=== PATIENT | female | born 1970 | race Caucasian/White ===

== ENCOUNTER → 2017-03-26 10:53 | Outpatient (CLI) | payer BC ==
[2013-05-20 17:02] VITALS: BMI 42.9
[~2017-03-26 10:53] MED LIST: ALEVE220 MG PO; COZAAR100 MG PO; OCELLA 3 MG-0.1 EACH PO; SYNTHROID175 MCG PO
== END | disposition home or self-care (01) ==
LOC: D.MRI 03-21 14:30
DX: E72.8 Other specified disorders of amino-acid metabolism (principal)

== ENCOUNTER 2017-05-15 13:29 | Emergency (ER) | payer BC ==
[2013-05-20 17:02] VITALS: BMI 42.9
[2017-05-15 14:26] LABS: BASOPHILS 0.1 % (0-2); EOSINOPHILS 2.1 % (0-7); HEMATOCRIT 40.7 % (36.0-48.0); HEMOGLOBIN 14.2 g/dL (12-16); IMMATURE GRANULOCYTES 0.2 % (0-5); LYMPHOCYTES 31.1 % (15-50); MCH 32.3 pg (26.0-34.0); MCHC 34.9 g/dL (31.0-37.0); MCV 92.7 fL (80.0-100.0); MEAN PLATELET VOLUME 10.8 fL (7.4-10.4); MONOCYTES 6.8 % (2-11); NEUTROPHILS 59.7 % (40-80); PLATELET COUNT 259 10x3/uL (130-400); RBC 4.39 10x6/uL (4.00-5.40); WBC 8.6 10x3/uL (4.8-10.8)
[2017-05-15 14:46] LABS: APPEARANCE HAZY (CLEAR); BACTERIA MODERATE /hpf (NONE SEEN); BILIRUBIN NEGATIVE (NEGATIVE); COLOR YELLOW (YELLOW); EPITHELIAL CELLS 0-5 /hpf (0-5); GLUCOSE 1000 mg/dL (NEGATIVE); KETONE NEGATIVE (NEGATIVE); MUCUS <1+ /lpf (NONE SEEN); NITRITE NEGATIVE (NEGATIVE); PROTEIN NEGATIVE (NEGATIVE); RED CELLS - URINE OCC /hpf (0-5); SPECIFIC GRAVITY 1.015 (1.005-1.020); UROBILINOGEN NORMAL (NORMAL); WHITE CELLS - URINE 0-5 /hpf (0-5); YEAST <1+ /hpf (NONE SEEN)
[2017-05-15 15:22] LABS: ALBUMIN 2.8 g/dL (3.4-5.0); ALKALINE PHOSPHATASE 75 U/L (46-116); ALT (SGPT) 29 U/L (10-68); BILIRUBIN - TOTAL 0.26 mg/dL (0.2-1.3); CALC OSMOLALITY 272 mosm/kg (275-300); CALCIUM 8.5 mg/dL (8.5-10.1); CARBON DIOXIDE 27.9 mmol/L (21.0-32.0); CHLORIDE - SERUM 105 mmol/L (98-107); CREATININE - SERUM 0.7 mg/dL (0.6-1.3); GLUCOSE 90 mg/dL (74-106); POTASSIUM - SERUM 3.3 mmol/L (3.5-5.1); PROTEIN - SERUM 6.5 g/dL (6.4-8.2); SODIUM 138 mmol/L (136-145); UREA NITROGEN 4 mg/dL (7-18); eGFR NON AFRICAN AMERICAN > 90 mL/min (90-120)
[2017-05-15 16:05] LABS: AMYLASE - SERUM 29 U/L (25-115); LIPASE 83 U/L (73-393)
[2017-05-15 16:17] LABS: KETONE - SERUM NEGATIVE (NEGATIVE)
[2017-05-15 16:35] LABS: MAGNESIUM - SERUM 1.8 mg/dL (1.8-2.4); THYROID STIMULATING HORMONE 0.01 uIU/mL (0.36-3.74)
== END 2017-05-15 17:35 | disposition home or self-care (01) ==
LOC: D.ER 13:29
PROVIDERS: Emergency Medicine; Nurse Practitioner Family
DX: R10.9 Unspecified abdominal pain (principal); R11.2 Nausea with vomiting, unspecified; E03.9 Hypothyroidism, unspecified

== ENCOUNTER 2018-04-08 18:29 | Inpatient (IN) | payer OTHER ==
[~2018-04-08] VITALS: Ht 157.5 cm; Wt 106.6 kg
--- NOTE | ~2018-04-08 | MORECARE ---
CASE MANAGEMENT DISCHARGE SUMMARY PATIENT: MAO HAMLIN UNIT: [id number] ADM DATE: 04/08/18 AGE: 48 : 72 SEX: F ROOM/BED: D.2203 AUTHOR: DELFINO GOODMAN PHYSICIAN: REFERRING PHYSICIAN: CADEN GIBSON MD DATE OF SERVICE: 04/09/18 Discharge Plan Patient Name: MAO HAMLIN [facility] [facility] 1970 Planned Disposition: Home Anticipated Discharge Date: Discharge Date: Expected LOS: Initial Reviewer: [email or web address] Initial Review Date: 04/09/2018 Generated: 04/09/18 2:39 pm DCPIA - Discharge Planning Initial Assessment Updated by [email or web address]: Ahslyn Singh on 04/09/18 1:37 pm * Is the patient Alert and Oriented? Yes * How many steps to enter\exit or inside your home? * PCP DEIRDRE ARMSTRONG * Pharmacy [facility] * Preadmission Environment Home with Family * ADLs Independent * Equipment None * List name and contact numbers for known caregivers / representatives who currently or will assist patient after discharge: OLGA LIDIA HAMLIN [phone] * Verbal permission to speak to the caregivers and representatives has been obtained from the patient. N/A * Community resources currently utilized None * Additional services required to return to the preadmission environment? No * Can the patient safely return to the preadmission environment? Yes * Has this patient been hospitalized within the prior 30 days at any hospital? Yes Patient Name: MAO HAMLIN Page [id number] at 1339 All edits/amendments must be made on the electronic document DICTATION DATE: 04/09/181337 PROGRAM OFFICER: KIERRA 04/09/181337 RPT#: [id number] DC DATE: STATUS: ADM IN [facility] [address] [place] [address] END OF REPORT
--- NOTE | ~2018-04-08 | MORECARE ---
CASE MANAGEMENT DISCHARGE SUMMARY PATIENT: MAO HAMLIN UNIT: [id number] ADM DATE: 04/08/18 AGE: 48 : 72 SEX: F ROOM/BED: D.2203 AUTHOR: MAXINE,DOC PHYSICIAN: REFERRING PHYSICIAN: CADEN GIBSON MD DATE OF SERVICE: 04/09/18 Discharge Plan Patient Name: MAO HAMLIN Facility: [facility]:[place] : 1970 Planned Disposition: Home Anticipated Discharge Date: Discharge Date: Expected LOS: Initial Reviewer: [email or web address] Initial Review Date: 04/09/2018 Generated: 04/09/18 2:47 pm Comments DCP- Discharge Planning Updated by [email or web address]: Ashlyn Singh on 04/09/18 12:[address] Patient Name: MAO HAMLIN Admission Status: ER Accout number: [id number] Admission Date: 04-08-2018 : 1970 Admission Diagnosis: Attending: CADEN GIBSON Current LOS: 1 Anticipated DC Date: Planned Disposition: Home Primary Insurance: UN[employer]URED [employer]COUNT PLAN Discharge Planning Comments: CM met with patient to assess discharge planning needs. Patient stated that she lives in [place] with her where she plans to return at discharge. She is independent with her care at home .She has recently had surgery at [facility] in [place] on 03/26. She is to see Dr Baron on May 02 for a surgery follow up. At this time she denies any needs and states her home is safe to return at discharge. CM will continue to follow and assist with DC planning Cigar Packer And Grader: Ashlyn Singh DCPIA - Discharge Planning Initial Assessment Updated by [email or web address]: Ashlyn Singh on 04/09/18 1:37 pm * Is the patient Alert and Oriented? Yes * How many steps to enter\exit or inside your home? * PCP DEIRDRE ARMSTRONG * Pharmacy [facility] * Preadmission Environment Home with Family * ADLs Independent * Equipment None * List name and contact numbers for known caregivers / representatives who currently or will assist patient after discharge: OLGA LIDIA HAMLIN [phone] * Verbal permission to speak to the caregivers and representatives has been obtained from the patient. N/A * Community resources currently utilized None * Additional services required to return to the preadmission environment? No * Can the patient safely return to the preadmission environment? Yes * Has this patient been hospitalized within the prior 30 days at any hospital? Yes Last DP export: 04/09/18 12:39 Patient Name: MAO HAMLIN Page 40004 at 1347 All edits/amendments must be made on the electronic document DICTATION DATE: 04/09/181346 INTEGRATED CIRCUIT IC LAYOUT DESIGNER: KIERRA 04/09/181346 RPT#: [id number] DC DATE: STATUS: ADM IN [facility] [address] [place] [address] END OF REPORT
--- NOTE | ~2018-04-08 | MORECARE ---
CASE MANAGEMENT DISCHARGE SUMMARY PATIENT: MAO HAMLIN UNIT: [id number] ADM DATE: 04/10/18 AGE: 48 : 72 SEX: F ROOM/BED: D.2203 AUTHOR: DELFINO GOODMAN PHYSICIAN: REFERRING PHYSICIAN: CADEN GIBSON MD DATE OF SERVICE: 04/14/18 Discharge Plan Patient Name: MAO HAMLIN Facility: [facility]:[place] : 1970 Planned Disposition: Home Anticipated Discharge Date: Discharge Date: 04/11/2018 Expected LOS: 0 Initial Reviewer: [email or web address] Initial Review Date: 04/09/2018 Generated: 04/14/18 11:14 am Comments DCP- Discharge Planning Updated by [email or web address]: Ashlyn Singh on 04/11/18 2:[address] Patient Name: MAO HAMLIN Encounter No: [id number] : 1970 Primary Insurance: [facility] Anticipated DC Date: Planned Disposition: Home External Planned Provider: : DCP follow-up note: Patient and family in agreement with discharge plan. No changes to plan. Case management will follow and assist as needed. Ashlyn Singh DCP- Discharge Planning Updated by [email or web address]: Ashlyn Singh on 04/09/18 12:[address] Patient Name: MAO HAMLIN Admission Status: ER Accout number: [id number] Admission Date: 04-08-2018 : 1970 Admission Diagnosis: Attending: CADEN GIBSON Current LOS: 1 Anticipated DC Date: Planned Disposition: Home Primary Insurance: UN[employer]URED [employer]COUNT PLAN Discharge Planning Comments: CM met with patient to assess discharge planning needs. Patient stated that she lives in [place] with her where she plans to return at discharge. She is independent with her care at home .She has recently had surgery at [facility] in [place] on 03/26. She is to see Dr Baron on May 02 for a surgery follow up. At this time she denies any needs and states her home is safe to return at discharge. CM will continue to follow and assist with DC planning Veterinary Technician Instructor: Ashlyn Singh DCPIA - Discharge Planning Initial Assessment Updated by [email or web address]: Ashlyn Singh on 04/09/18 1:37 pm * Is the patient Alert and Oriented? Yes * How many steps to enter\exit or inside your home? * PCP DEIRDRE ARMSTRONG * Pharmacy [facility] * Preadmission Environment Home with Family * ADLs Independent * Equipment None * List name and contact numbers for known caregivers / representatives who currently or will assist patient after discharge: OLGA LIDIA HAMLIN [phone] * Verbal permission to speak to the caregivers and representatives has been obtained from the patient. N/A * Community resources currently utilized None * Additional services required to return to the preadmission environment? No * Can the patient safely return to the preadmission environment? Yes * Has this patient been hospitalized within the prior 30 days at any hospital? Yes Last DP export: 04/11/18 2:23 Patient Name: MAO HAMLIN Page 30233 at 1014 All edits/amendments must be made on the electronic document DICTATION DATE: 04/14/18 1014 ROOFER GYPSUM: KIERRA 04/14/18 1014 RPT#: [id number] DC DATE:04/11/18 STATUS: DIS IN [facility] [address] [place] [address] END OF REPORT
--- NOTE | ~2018-04-08 | MORECARE ---
CASE MANAGEMENT DISCHARGE SUMMARY PATIENT: MAO HAMLIN UNIT: [id number] ADM DATE: 04/10/18 AGE: 48 : 72 SEX: F ROOM/BED: D.2203 AUTHOR: DELFINO GOODMAN PHYSICIAN: REFERRING PHYSICIAN: CADEN GIBSON MD DATE OF SERVICE: 04/11/18 Discharge Plan Patient Name: MAO HAMLIN Facility: [facility]:[place] : 1970 Planned Disposition: Home Anticipated Discharge Date: Discharge Date: Expected LOS: Initial Reviewer: [email or web address] Initial Review Date: 04/09/2018 Generated: 04/11/18 4:23 pm Comments DCP- Discharge Planning Updated by [email or web address]: Ashlyn Singh on 04/11/18 2:[address] Patient Name: MAO HAMLIN Encounter No: [id number] : 1970 Primary Insurance: [facility] Anticipated DC Date: Planned Disposition: Home External Planned Provider: : DCP follow-up note: Patient and family in agreement with discharge plan. No changes to plan. Case management will follow and assist as needed. Ashlyn Singh DCP- Discharge Planning Updated by [email or web address]: Ashlyn Singh on 04/09/18 12:[address] Patient Name: MAO HAMLIN Admission Status: ER Accout number: [id number] Admission Date: 04-08-2018 : 1970 Admission Diagnosis: Attending: CADEN GIBSON Current LOS: 1 Anticipated DC Date: Planned Disposition: Home Primary Insurance: UN[employer]URED [employer]COUNT PLAN Discharge Planning Comments: CM met with patient to assess discharge planning needs. Patient stated that she lives in [place] with her where she plans to return at discharge. She is independent with her care at home .She has recently had surgery at [facility] in [place] on 03/26. She is to see Dr Baron on May 02 for a surgery follow up. At this time she denies any needs and states her home is safe to return at discharge. CM will continue to follow and assist with DC planning Roving Machine Operator: Ashlyn Singh DCPIA - Discharge Planning Initial Assessment Updated by [email or web address]: Ashlyn Singh on 04/09/18 1:37 pm * Is the patient Alert and Oriented? Yes * How many steps to enter\exit or inside your home? * PCP DEIRDRE ARMSTRONG * [facility] * Preadmission Environment Home with Family * ADLs Independent * Equipment None * List name and contact numbers for known caregivers / representatives who currently or will assist patient after discharge: OLGA LIDIA HAMLIN [phone] * Verbal permission to speak to the caregivers and representatives has been obtained from the patient. N/A * Community resources currently utilized None * Additional services required to return to the preadmission environment? No * Can the patient safely return to the preadmission environment? Yes * Has this patient been hospitalized within the prior 30 days at any hospital? Yes Last DP export: 04/09/18 12:47 Patient Name: MAO HAMLIN Page 72115 at 1523 All edits/amendments must be made on the electronic document DICTATION DATE: 04/11/181521 IT OPERATIONS SPECIALIST: KIERRA 04/11/181521 RPT#: [id number] DC DATE: STATUS: ADM IN [facility] [address] [place] [address] END OF REPORT
[2018-04-08 19:12] LABS: BASOPHILS 0.2 % (0-2); EOSINOPHILS 0.5 % (0-7); HEMATOCRIT 40.4 % (36.0-48.0); HEMOGLOBIN 13.9 g/dL (12-16); IMMATURE GRANULOCYTES 0.3 % (0-5); LYMPHOCYTES 16.5 % (15-50); MCH 32.9 pg (26.0-34.0); MCHC 34.4 g/dL (31.0-37.0); MCV 95.5 fL (80.0-100.0); MEAN PLATELET VOLUME 10.2 fL (7.4-10.4); MONOCYTES 8.6 % (2-11); NEUTROPHILS 73.9 % (40-80); RBC 4.23 10x6/uL (4.00-5.40); RDW 13.4 % (11.5-14.5); WBC 19.1 10x3/uL (4.8-10.8)
[2018-04-08 19:23] LABS: PLATELET COUNT 341 10x3/uL (130-400)
[2018-04-08 19:26] LABS: ALBUMIN 3.2 g/dL (3.4-5.0); ALKALINE PHOSPHATASE 98 U/L (46-116); ALT (SGPT) 24 U/L (10-68); BILIRUBIN - TOTAL 0.39 mg/dL (0.2-1.3); CALC OSMOLALITY 273 mosm/kg (275-300); CARBON DIOXIDE 25.5 mmol/L (21.0-32.0); CHLORIDE - SERUM 101 mmol/L (98-107); CREATININE - SERUM 0.8 mg/dL (0.6-1.3); GLUCOSE 126 mg/dL (74-106); POTASSIUM - SERUM 3.7 mmol/L (3.5-5.1); PROTEIN - SERUM 7.9 g/dL (6.4-8.2); SODIUM 138 mmol/L (136-145); UREA NITROGEN 2 mg/dL (7-18); eGFR NON AFRICAN AMERICAN 81 mL/min (90-120)
[2018-04-08 20:31] LABS: APPEARANCE CLEAR (CLEAR); COLOR YELLOW (YELLOW); NITRITE NEGATIVE (NEGATIVE); PROTEIN NEGATIVE (NEGATIVE); SPECIFIC GRAVITY 1.015 (1.005-1.020)
[2018-04-08 20:32] LABS: BILIRUBIN NEGATIVE (NEGATIVE); GLUCOSE 250 mg/dL (NEGATIVE); KETONE NEGATIVE (NEGATIVE); RED CELLS - URINE OCC /hpf (0-5); UROBILINOGEN NORMAL (NORMAL); WHITE CELLS - URINE OCC /hpf (0-5)
[2018-04-08 20:33] LABS: BACTERIA FEW /hpf (NONE SEEN); YEAST >1+ /hpf (NONE SEEN)
[2018-04-08 21:48] LABS: INR 1.13 (0.85-1.17); PROTIME 14.1 SECONDS (11.6-15.0)
[2018-04-08 23:14] LABS: APPEARANCE - CSF CLEAR
[2018-04-08 23:19] LABS: GLUCOSE - CSF 69 MG/DL (40-75); PROTEIN - CSF 113 MG/DL (12-60)
[2018-04-08 23:27] LABS: RBC - CSF 368 cmm (0-0)
[2018-04-09 01:20] VITALS: BP 143/79; BMI 43.1
[2018-04-09 04:39] LABS: BASOPHILS 0.2 % (0-2); EOSINOPHILS 0.4 % (0-7); HEMATOCRIT 35.7 % (36.0-48.0); HEMOGLOBIN 12.2 g/dL (12-16); IMMATURE GRANULOCYTES 0.3 % (0-5); LYMPHOCYTES 20.8 % (15-50); MCH 32.2 pg (26.0-34.0); MCHC 34.2 g/dL (31.0-37.0); MCV 94.2 fL (80.0-100.0); MEAN PLATELET VOLUME 10.1 fL (7.4-10.4); NEUTROPHILS 71.3 % (40-80); PLATELET COUNT 334 10x3/uL (130-400); RBC 3.79 10x6/uL (4.00-5.40); RDW 13.4 % (11.5-14.5); WBC 14.5 10x3/uL (4.8-10.8)
[2018-04-09 05:04] LABS: ALBUMIN 2.6 g/dL (3.4-5.0); ALKALINE PHOSPHATASE 82 U/L (46-116); ALT (SGPT) 20 U/L (10-68); CALC OSMOLALITY 274 mosm/kg (275-300); CALCIUM 8.4 mg/dL (8.5-10.1); CARBON DIOXIDE 23.6 mmol/L (21.0-32.0); CHLORIDE - SERUM 103 mmol/L (98-107); CREATININE - SERUM 0.6 mg/dL (0.6-1.3); GLUCOSE 134 mg/dL (74-106); POTASSIUM - SERUM 3.5 mmol/L (3.5-5.1); PROTEIN - SERUM 6.7 g/dL (6.4-8.2); SODIUM 138 mmol/L (136-145); eGFR NON AFRICAN AMERICAN > 90 mL/min (90-120)
[2018-04-09 05:07] LABS: UREA NITROGEN 3 mg/dL (7-18)
[2018-04-09 05:10] VITALS: BP 126/73
[2018-04-09 08:30] VITALS: BP 147/84
[2018-04-09 12:45] VITALS: BP 151/89
[2018-04-09 13:38] VITALS: Ht 157.5 cm; Wt 106.6 kg
[2018-04-09] MEDS ORDERED: ARMOUR THYROID180 MG PO (16:08)
[2018-04-09] MEDS ORDERED: FARXIGA10 MG PO (16:09)
[2018-04-09 20:49] VITALS: BP 147/73
[2018-04-10 04:35] VITALS: BP 125/85
[2018-04-10 06:54] LABS: BASOPHILS 0.3 % (0-2); EOSINOPHILS 2.7 % (0-7); HEMATOCRIT 34.9 % (36.0-48.0); HEMOGLOBIN 11.8 g/dL (12-16); IMMATURE GRANULOCYTES 0.2 % (0-5); LYMPHOCYTES 24.4 % (15-50); MCH 32.2 pg (26.0-34.0); MCHC 33.8 g/dL (31.0-37.0); MCV 95.4 fL (80.0-100.0); MEAN PLATELET VOLUME 10.3 fL (7.4-10.4); MONOCYTES 8.7 % (2-11); NEUTROPHILS 63.7 % (40-80); PLATELET COUNT 308 10x3/uL (130-400); RBC 3.66 10x6/uL (4.00-5.40); RDW 13.4 % (11.5-14.5)
[2018-04-10 06:55] LABS: WBC 10.1 10x3/uL (4.8-10.8)
[2018-04-10 07:06] LABS: CALC OSMOLALITY 275 mosm/kg (275-300); CALCIUM 8.3 mg/dL (8.5-10.1); CARBON DIOXIDE 25.9 mmol/L (21.0-32.0); CHLORIDE - SERUM 105 mmol/L (98-107); CREATININE - SERUM 0.5 mg/dL (0.6-1.3); GLUCOSE 111 mg/dL (74-106); POTASSIUM - SERUM 3.5 mmol/L (3.5-5.1); SODIUM 140 mmol/L (136-145); eGFR NON AFRICAN AMERICAN > 90 mL/min (90-120)
[2018-04-10 07:07] LABS: UREA NITROGEN 2 mg/dL (7-18)
[2018-04-10 08:49] VITALS: BP 139/62
[2018-04-10 16:45] VITALS: BP 131/90
[2018-04-10 21:05] VITALS: BP 109/63
[2018-04-11 04:35] VITALS: BP 135/76
[2018-04-11 06:20] LABS: HEMATOCRIT 32.9 % (36.0-48.0); HEMOGLOBIN 11.4 g/dL (12-16); LYMPHOCYTES 30.1 % (15-50); MCH 32.5 pg (26.0-34.0); MCHC 34.7 g/dL (31.0-37.0); MCV 93.7 fL (80.0-100.0); MEAN PLATELET VOLUME 9.7 fL (7.4-10.4); NEUTROPHILS 60.3 % (40-80); PLATELET COUNT 330 10x3/uL (130-400); RBC 3.51 10x6/uL (4.00-5.40); RDW 12.9 % (11.5-14.5)
[2018-04-11 06:22] LABS: WBC 6.8 10x3/uL (4.8-10.8)
[2018-04-11 06:36] LABS: CALC OSMOLALITY 276 mosm/kg (275-300); CALCIUM 8.2 mg/dL (8.5-10.1); CARBON DIOXIDE 25.9 mmol/L (21.0-32.0); CHLORIDE - SERUM 106 mmol/L (98-107); CREATININE - SERUM 0.5 mg/dL (0.6-1.3); GLUCOSE 108 mg/dL (74-106); POTASSIUM - SERUM 3.7 mmol/L (3.5-5.1); SODIUM 140 mmol/L (136-145); eGFR NON AFRICAN AMERICAN > 90 mL/min (90-120)
[2018-04-11 06:38] LABS: UREA NITROGEN 4 mg/dL (7-18)
[2018-04-11 08:21] VITALS: BP 152/80
[2018-04-11 12:09] VITALS: BP 145/58
[2018-04-11] MEDS ORDERED: AUGMENTIN 875-11 TAB PO (12:11)
[2018-04-11 12:36] VITALS: BP 145/88
[2018-04-11] MEDS ORDERED: HYDROCODON-ACE1 EAC7 PO (13:59)
[2018-04-11 16:15] LABS: FUNGUS STAIN Final report (())
[2018-04-12 03:12] LABS: HSV 1 DNA (PCR) Negative (Negative); HSV 2 DNA (PCR) Negative (Negative)
[2018-04-12 10:13] LABS: CRYPTO AG - CSF Negative (Negative)
[2018-04-14 14:20] LABS: MYELIN BASIC PROTEIN, CSF 1.3 ng/mL (0.0-1.2)
[2018-04-14 16:13] LABS: ENTEROVIRUS RT-PCR Negative (Negative)
[2018-04-16 11:17] LABS: FUNGUS MYCOLOGY CULTURE Preliminary report (())
[2018-04-18 03:12] LABS: VIRAL - RESULT No virus isolated. (())
== END 2018-04-11 13:48 | disposition home or self-care (01) | DRG 74 ==
LOC: D.ER 18:29 → OBSVTIME 22:22 → D.MS 22:22
PROVIDERS: Emergency Medicine; Family Medicine; General Practice; Internal Medicine Nephrology
PROC: 009U3ZX Drainage of Spinal Canal, Percutaneous Approach, Diagnostic (ICD-10-PCS; principal; 2018-04-08)
PROC: B01B1ZZ Fluoroscopy of Spinal Cord using Low Osmolar Contrast (ICD-10-PCS; 2018-04-08)
DX: G50.1 Atypical facial pain (principal); Z68.41 Body mass index [BMI] 40.0-44.9, adult; J32.4 Chronic pansinusitis; E03.9 Hypothyroidism, unspecified; I10 Essential (primary) hypertension; E66.9 Obesity, unspecified; E11.9 Type 2 diabetes mellitus without complications; D72.829 Elevated white blood cell count, unspecified

== ENCOUNTER 2018-04-17 10:35 | Emergency (ER) | payer OTHER ==
[~2018-04-17] VITALS: Ht 157.5 cm; Wt 60.9 kg
[~2018-04-17 10:35] MED LIST changes: +ARMOUR THYROID180 MG PO; +AUGMENTIN 875-11 TAB PO; +FARXIGA10 MG PO; +HYDROCODON-ACE1 EAC7 PO
[2018-04-17 10:40] VITALS: Ht 157.5 cm; Wt 60.9 kg
[2018-04-17 11:08] LABS: BASOPHILS 0.3 % (0-2); EOSINOPHILS 1.6 % (0-7); HEMATOCRIT 35.4 % (36.0-48.0); HEMOGLOBIN 12.4 g/dL (12-16); IMMATURE GRANULOCYTES 0.3 % (0-5); LYMPHOCYTES 26.3 % (15-50); MCH 32.3 pg (26.0-34.0); MCV 92.2 fL (80.0-100.0); MEAN PLATELET VOLUME 9.8 fL (7.4-10.4); MONOCYTES 6.7 % (2-11); NEUTROPHILS 64.8 % (40-80); PLATELET COUNT 433 10x3/uL (130-400); RBC 3.84 10x6/uL (4.00-5.40); RDW 13.1 % (11.5-14.5); WBC 9.8 10x3/uL (4.8-10.8)
[2018-04-17 11:26] LABS: ALBUMIN 3.2 g/dL (3.4-5.0); ALKALINE PHOSPHATASE 96 U/L (46-116); ALT (SGPT) 23 U/L (10-68); BILIRUBIN - TOTAL 0.19 mg/dL (0.2-1.3); CALC OSMOLALITY 273 mosm/kg (275-300); CALCIUM 8.5 mg/dL (8.5-10.1); CARBON DIOXIDE 26.5 mmol/L (21.0-32.0); CHLORIDE - SERUM 103 mmol/L (98-107); CREATININE - SERUM 0.7 mg/dL (0.6-1.3); GLUCOSE 117 mg/dL (74-106); POTASSIUM - SERUM 3.4 mmol/L (3.5-5.1); PROTEIN - SERUM 7.5 g/dL (6.4-8.2); SODIUM 138 mmol/L (136-145); UREA NITROGEN 3 mg/dL (7-18); eGFR NON AFRICAN AMERICAN > 90 mL/min (90-120)
[2018-04-17 11:27] LABS: APTT 30.1 SECONDS (22.8-39.4); INR 1.09 (0.85-1.17); PROTIME 13.7 SECONDS (11.6-15.0)
[2018-04-17 11:37] LABS: CKMB 0.4 U/L (0.0-3.6); CREATINE KINASE 29 UL (21-215); TROPONIN-I < 0.017 ng/mL (0.000-0.060)
[2018-04-17 13:32] LABS: APPEARANCE CLEAR (CLEAR); BILIRUBIN NEGATIVE (NEGATIVE); COLOR YELLOW (YELLOW); GLUCOSE 1000 mg/dL (NEGATIVE); KETONE MODERATE mg/dL (NEGATIVE); NITRITE NEGATIVE (NEGATIVE); PROTEIN NEGATIVE (NEGATIVE); RED CELLS - URINE 0-5 /hpf (0-5); SPECIFIC GRAVITY 1.015 (1.005-1.020); UROBILINOGEN NORMAL (NORMAL)
[2018-04-17 13:33] LABS: BACTERIA FEW /hpf (NONE SEEN); EPITHELIAL CELLS 0-5 /hpf (0-5); MUCUS <1+ /lpf (NONE SEEN)
[2018-04-17] MEDS ORDERED: IBUPROFEN800 MG PO (14:00)
[2018-04-17] MEDS ORDERED: FLORASTOR250 MG PO (14:01)
[2018-04-17 14:39] VITALS: BP 146/80
== END 2018-04-17 14:42 | disposition home or self-care (01) ==
LOC: D.ER 10:35
PROVIDERS: Family Medicine
DX: J01.90 Acute sinusitis, unspecified (principal); R51 Headache; T81.9XXA Unspecified complication of procedure, initial encounter; R11.2 Nausea with vomiting, unspecified; I10 Essential (primary) hypertension

== ENCOUNTER 2019-11-03 19:30 | Outpatient (CLI) | payer OTHER ==
[2018-04-17 10:40] VITALS: BMI 24.5
[~2019-11-03 19:30] MED LIST changes: +FLORASTOR250 MG PO; +IBUPROFEN800 MG PO
== END 2019-11-03 23:59 | disposition home or self-care (01) ==
LOC: D.MAMMO 19:30
PROVIDERS: ATTEND Family Medicine
DX: Z12.31 Encounter for screening mammogram for malignant neoplasm of breast (principal)

== ENCOUNTER → 2019-11-19 14:30 | Outpatient (CLI) | payer OTHER ==
[2018-04-17 10:40] VITALS: BMI 24.5
== END | disposition home or self-care (01) ==
LOC: D.MAMMO 14:30
PROVIDERS: ATTEND Family Medicine
DX: R92.8 Other abnormal and inconclusive findings on diagnostic imaging of breast (principal)